=== PATIENT | female | born 1965 | race Two or more races ===

== ENCOUNTER 2023-01-12 08:16 | Emergency (ER) | payer OTHER ==
[~2023-01-12] VITALS: Ht 165.1 cm; Wt 48.1 kg
[2023-01-12] MEDS ORDERED: CLONAZEPAM2 MG PO (08:23)
[2023-01-12] MEDS ORDERED: WELLBUTRIN XL300 MG PO (08:24)
[2023-01-12] MEDS ORDERED: RISPERDAL3 MG (08:24)
[2023-01-12] MEDS ORDERED: DEPAKOTE ER500 MG PO (08:25)
[2023-01-12 09:59] LABS: URINE APPEARANCE Clear; URINE BILIRRUBIN Negative (NEGATIVE); URINE BLOOD Negative; URINE COLOR Yellow; URINE GLUCOSE Negative (NEGATIVE); URINE LEUKOCYTE Trace; URINE NITRATE Negative; URINE PROTEIN Negative (NEGATIVE)
[2023-01-12 10:03] LABS: URINE BACTERIA 201.5 uL (0.0-1933); URINE EPITHELIAL CELLS 7.5 uL (0.0-38.8); URINE WBC 7.8 uL (0.0-23.2)
[2023-01-12 10:33] LABS: ALBUMIN 3.4 gm/dL (3.4-5.0); BILIRUBIN TOTAL 0.38 mg/dL (0.3-1.2); CALCIUM 9.3 mg/dL (8.5-10.1); CREATININE SERUM 0.55 mg/dL (0.55-1.02); GFR 113.13; GLOBULINA 4.9 G/DL (2.4-3.5); POTASSIUM 3.16 mEq/L (3.5-5.1); TOTAL PROTEIN 8.3 gm/dL (6.4-8.2)
[2023-01-12 10:38] LABS: HEMATOCRIT 36.1 % (36.0-45.00); HEMOGLOBIN 12.4 g/dL (12.0-15.00); MEAN CELL VOLUME 88.3 fL (80.00-100.00); MEAN CORPUSCULAR HEMOGLOBIN 30.2 pg (27.00-32.0); MEAN CORPUSCULAR HGB CONC 34.2 g/dl (32.0-36.0); RED CELL DISTRIBUTION WIDTH 13.6 % (11.5-14.5)
[2023-01-12 10:39] LABS: PLATELET COUNT 640 K/uL (150-450)
[2023-01-12] MEDS ORDERED: PRILOSEC OTC20 MG PO (15:52)
[2023-01-12] MEDS ORDERED: PEPCID AC20 MG PO (15:52)
== END 2023-01-12 16:00 | disposition home or self-care (01) ==
LOC: ER 08:16
PROVIDERS: Emergency Medicine
DX: K21.9 Gastro-esophageal reflux disease without esophagitis (principal)
CPT/HCPCS: 36415; 96365; 96366; 99283; J3490; J7030